=== PATIENT | male | born 1950 | race Caucasian/White ===

== ENCOUNTER 2022-02-09 18:01 | Emergency (ER) | payer OTHER, SELFPAY ==
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
[2022-02-09 19:53] VITALS: BP 156/98; PULSE 82; RESP 18; TEMP 36.7; O2SAT 98; BMI 35.4
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
[2022-02-09 22:02] VITALS: BP 188/102; PULSE 96; RESP 15; O2SAT 98
[2022-02-09] MEDS: oxyCODONE HCl Immed Release 5 MG TABLET 10 MG PO ×2 (23:02→23:56)
[2022-02-09] MEDS: dexAMETHasone 2 MG TABLET 10 MG PO (23:03)
[2022-02-09] MEDS: Cyclobenzaprine HCl 10 MG TABLET PO (23:03)
== END 2022-02-09 23:49 | disposition home or self-care (01) ==
PROVIDERS: Emergency Provider Internal Medicine
DX: S39.012A Strain of muscle, fascia and tendon of lower back, initial encounter (principal); V43.52XA Car driver injured in collision with other type car in traffic accident, initial encounter; Y93.89 Activity, other specified; Y92.414 Local residential or business street as the place of occurrence of the external cause; Y99.8 Other external cause status
CPT/HCPCS: 72100; 72131; 72220; 99284; 99285; J8540